=== PATIENT | female | born 1980 | race Caucasian/White ===

== ENCOUNTER 2016-12-28 01:28 | Emergency (ER) | payer MEDICAID ==
[~2016-12-28] VITALS: Ht 167.6 cm; Wt 72.1 kg
[2016-12-28 01:30] VITALS: BP 145/89
[2016-12-28] MEDS ORDERED: HYDROmorphone 1 MG/ML, 1ML ONE (01:56)
[2016-12-28] MEDS ORDERED: DIAZEPAM 5 MG TABLET ONE (01:56)
[2016-12-28] MEDS ORDERED: KETOROLAC 30 MG/1 ML ONE (01:56)
[2016-12-28] MEDS ORDERED: DIAZEPAM 5 MG TABLET PO ONE (02:00)
[2016-12-28] MEDS ORDERED: KETOROLAC 30 MG/1 ML IM ONE (02:00)
[2016-12-28] MEDS ORDERED: HYDROmorphone 1 MG/ML, 1ML IM ONE (02:00)
[2016-12-28 02:20] LABS: HCG UR LOT HCG7030192
[2016-12-28 02:29] LABS: HCG UR OBC PASS
[2016-12-28 03:17] LABS: PATH.CAST-FLAG NOT PRESENT; SPERM-FLAG NOT PRESENT; SRC-FLAG NOT PRESENT; XTAL-FLAG NOT PRESENT; YLC-FLAG NOT PRESENT
== END 2016-12-28 03:34 | disposition home or self-care (01) ==
LOC: ED 03:24
DX: S39.012A Strain of muscle, fascia and tendon of lower back, initial encounter (principal); F17.200 Nicotine dependence, unspecified, uncomplicated; Z90.49 Acquired absence of other specified parts of digestive tract; W01.0XXA Fall on same level from slipping, tripping and stumbling without subsequent striking against object, initial encounter; Y93.01 Activity, walking, marching and hiking; Y92.89 Other specified places as the place of occurrence of the external cause; Y99.8 Other external cause status
CPT/HCPCS: 72110; 81001; 81025; 87086; 96372; 99285; J1170; J1885

== ENCOUNTER 2018-01-25 22:02 | Emergency (ER) | payer MEDICAID ==
[~2018-01-25] VITALS: Ht 167.6 cm; Wt 73.5 kg
[2018-01-25 23:14] VITALS: BP 115/62
[2018-01-25 23:27] LABS: MICROSCOPIC AUTO
[2018-01-25 23:27] LABS: CLUE CELLS NONE SEEN (NONE SEEN)
[2018-01-25 23:28] LABS: WET PREP WBCS MODERATE (FEW)
[2018-01-25 23:30] LABS: CULTURE INDICATED? YES
[2018-01-25] MEDS ORDERED: CEFTRIAXONE 1,000 MG IM ONE (23:30)
[2018-01-25] MEDS ORDERED: AZITHROMYCIN 500 MG TABLET PO ONE (23:30)
[2018-01-25 23:31] LABS: HCG UR SG 1.027 (1.003-1.030)
[2018-01-25] MEDS ORDERED: AZITHROMYCIN 250 MG TABLET ONE (23:33)
[2018-01-25] MEDS ORDERED: CEFTRIAXONE 1,000 MG ONE (23:34)
== END 2018-01-26 | disposition home or self-care (01) ==
LOC: ED 22:55
DX: A59.09 Other urogenital trichomoniasis (principal); F17.210 Nicotine dependence, cigarettes, uncomplicated
CPT/HCPCS: 81001; 81025; 87086; 87210; 87491; 87591; 87808; 96372; 99284; J0696

== ENCOUNTER 2018-05-04 00:21 | Emergency (ER) | payer MEDICAID ==
[~2018-05-04] VITALS: Ht 167.6 cm; Wt 70.0 kg
[2018-05-04 00:24] VITALS: BP 122/83
[2018-05-04] MEDS ORDERED: LIDOCAINE-MPF 1%, 5ML INFIL ONE (01:30)
[2018-05-04] MEDS ORDERED: HYDROcodone/APAP 5/325 TABLET PO ONE (01:30)
[2018-05-04] MEDS ORDERED: LIDOCAINE-MPF 1%, 5ML ONE (01:44)
[2018-05-04] MEDS ORDERED: BACITRACIN ZINC OINT 500U/GM, 0.9 GM ONE (02:03)
== END 2018-05-04 02:21 | disposition home or self-care (01) ==
LOC: ED 01:41
DX: S61.311A Laceration without foreign body of left index finger with damage to nail, initial encounter (principal); F17.210 Nicotine dependence, cigarettes, uncomplicated; W26.0XXA Contact with knife, initial encounter; Y93.89 Activity, other specified; Y92.009 Unspecified place in unspecified non-institutional (private) residence as the place of occurrence of the external cause; Y99.8 Other external cause status
CPT/HCPCS: 12001; 99283

== ENCOUNTER 2018-06-04 22:08 | Emergency (ER) | payer MEDICAID ==
[~2018-06-04] VITALS: Ht 170.2 cm; Wt 70.7 kg
[2018-06-04 22:16] VITALS: BP 111/74
--- NOTE | 2018-06-04 22:21 | NUR ---
Pt ambulated to room with EDT.
[2018-06-04 23:16] LABS: WET PREP WBCS FEW (FEW)
[2018-06-04 23:18] LABS: CLUE CELLS NONE SEEN (NONE SEEN)
[2018-06-04] MEDS ORDERED: CEFTRIAXONE 250 MG IM ONE (23:30)
[2018-06-04] MEDS ORDERED: AZITHROMYCIN 250 MG TABLET PO ONE (23:30)
[2018-06-04] MEDS ORDERED: AZITHROMYCIN 500 MG TABLET ONE (23:46)
[2018-06-04] MEDS ORDERED: LIDOCAINE-MPF 1%, 2ML ONE (23:46)
[2018-06-04] MEDS ORDERED: CEFTRIAXONE 250 MG ONE (23:46)
[2018-06-05 00:17] LABS: HCG UR SG 1.027 (1.003-1.030); MICROSCOPIC AUTO
[2018-06-05 00:18] LABS: CULTURE INDICATED? YES
== END 2018-06-05 00:38 | disposition home or self-care (01) ==
LOC: ED 22:42
DX: N76.0 Acute vaginitis (principal); F17.200 Nicotine dependence, unspecified, uncomplicated; Z72.9 Problem related to lifestyle, unspecified; F17.210 Nicotine dependence, cigarettes, uncomplicated
CPT/HCPCS: 81001; 81025; 87086; 87210; 87491; 87591; 87808; 99283

== ENCOUNTER 2019-07-28 20:12 | Emergency (ER) | payer MEDICAID ==
[~2019-07-28] VITALS: Ht 170.2 cm; Wt 73.6 kg
[2019-07-28 20:21] VITALS: BP 116/73
--- NOTE | 2019-07-28 20:35 | NUR ---
THIS IS A 39Y F THAT COMES IN TONIGHT AFTER TWISTING HER ANKLE AND FALLING ON THE STAIRS ABOUT 6HRS AGO. PT PRESENTS WITH A SWOLLEN TENDER R ANKLE AND IS UNABLE TO AMBULATE WITHOUT ASSIST DUE TO PAIN. PT ABLE TO SPEAK IN FULL SENTENCES AND STS SHE DOES NOT WANT ANY PAIN MEDICATION
[2019-07-28] MEDS ORDERED: ACETAMINOPHEN 325 MG TABLET ONE (20:46)
--- NOTE | 2019-07-28 20:48 | NUR ---
PT PROVIDED ICE PACK AND MEDICATED PER ALBERTO ESPINO
[2019-07-28] MEDS ORDERED: ACETAMINOPHEN 325 MG TABLET PO ONE (21:00)
== END 2019-07-28 22:12 | disposition home or self-care (01) ==
LOC: ED 20:30
DX: S93.401A Sprain of unspecified ligament of right ankle, initial encounter (principal); F17.210 Nicotine dependence, cigarettes, uncomplicated; X58.XXXA Exposure to other specified factors, initial encounter; Y93.89 Activity, other specified; Y92.098 Other place in other non-institutional residence as the place of occurrence of the external cause; Y99.8 Other external cause status
CPT/HCPCS: 99284

== ENCOUNTER 2019-09-05 04:49 | Emergency (ER) | payer MEDICAID ==
[~2019-09-05] VITALS: Ht 170.2 cm; Wt 71.6 kg
[2019-09-05 04:52] VITALS: BP 126/90
[2019-09-05] MEDS ORDERED: KETOROLAC 30 MG/1 ML ONE (05:12)
--- NOTE | 2019-09-05 05:14 | NUR ---
PT RESTING ON GURNEY, MONITORS IN PLACE, SIDERAILS UP X2, CALL LIGHT WITHIN REACH. PT REFUSED PAIN MEDICATION, DENIES FURTHE RNEEDS AT THSI TIME
[2019-09-05] MEDS ORDERED: KETOROLAC 30 MG/1 ML IM ONE (05:30)
--- NOTE | 2019-09-05 05:50 | NUR ---
medical education specialist at pt's bedside to apply nathaly wrap and crutch instructions
== END 2019-09-05 05:59 | disposition home or self-care (01) ==
LOC: ED 05:48
DX: G89.29 Other chronic pain (principal); M25.571 Pain in right ankle and joints of right foot; F17.200 Nicotine dependence, unspecified, uncomplicated; X50.1XXA Overexertion from prolonged static or awkward postures, initial encounter; Y93.89 Activity, other specified; Y92.89 Other specified places as the place of occurrence of the external cause; Y99.8 Other external cause status
CPT/HCPCS: 99283

== ENCOUNTER 2020-05-02 18:04 | Emergency (ER) | payer MEDICAID ==
--- NOTE | 2020-05-02 18:47 | NUR ---
LATE ENTRY FOR 1809. PT PUSHED BUTTON AT DOOR AND DEMANDED TO BE LET BACK. PT WOULD NOT GIVE ANY INFORMATION AND PUSHED THE DOOR OPEN WHEN ANOTHER PERSON WAS ON THEIR WAY TO THE LOBBY FROM THE ED. PT STORMED TO DESK AND DEMANDED TO BE SEEN BECAUSE SHE RECEIVED A LETTER FROM THE DEPARTMENT OF HEALTH. THIS TECH INFORMED HER THAT SHE WOULD HAVE TO WAIT TO BE SEEN AND THAT SHE WOULD HAVE TO BE TRIAGED FIRST. SHE STATED SHE DID NOT WANT TO WAIT AND WALKED OUT OF THE ED TOWARDS THE LOBBY.
== END 2020-05-02 19:35 ==
LOC: ED 18:34
DX: Z53.21 Procedure and treatment not carried out due to patient leaving prior to being seen by health care provider (principal)

== ENCOUNTER 2020-06-04 05:56 | Emergency (ER) | payer MEDICAID ==
[~2020-06-04] VITALS: Ht 170.2 cm; Wt 76.1 kg
[2020-06-04] MEDS ORDERED: CEFTRIAXONE 1,000 MG ONE (06:28)
[2020-06-04] MEDS ORDERED: AZITHROMYCIN 500 MG TABLET ONE (06:28)
[2020-06-04] MEDS ORDERED: CEFTRIAXONE 250 MG IM ONE (06:30)
[2020-06-04] MEDS ORDERED: AZITHROMYCIN 500 MG TABLET PO ONE (06:30)
--- NOTE | 2020-06-04 06:30 | NUR ---
DR. OVALLE AND THIS RN TO BEDSIDE. PELVIX EXAM PERFORMED BY MD. NO COTTON BALL VISUALIZED. NO FOUL ODOR NOTED. CALL STACK IN REACH. SAFETY MAINTAINED.
[2020-06-04 06:45] LABS: WET PREP WBCS FEW (FEW)
[2020-06-04 06:47] LABS: CLUE CELLS NONE SEEN (NONE SEEN)
--- NOTE | 2020-06-04 06:49 | NUR ---
REPORT GIVEN TO GWEN MALAVE
[2020-06-04 07:02] VITALS: BP 132/72
== END 2020-06-04 07:04 | disposition home or self-care (01) ==
LOC: ED 06:37
DX: R10.2 Pelvic and perineal pain (principal); R11.0 Nausea; F17.200 Nicotine dependence, unspecified, uncomplicated; Z98.51 Tubal ligation status
CPT/HCPCS: 87210; 87491; 87591; 87808; 96372; 99284; J0696

== ENCOUNTER 2020-10-20 18:28 | Emergency (ER) | payer MEDICAID ==
[~2020-10-20] VITALS: Ht 170.2 cm; Wt 74.0 kg
[2020-10-20 18:31] VITALS: BP 150/87
--- NOTE | 2020-10-20 18:52 | NUR ---
urine collected and sent. pt back to lobby
[2020-10-20 19:27] LABS: MICROSCOPIC AUTO
--- NOTE | 2020-10-20 23:06 | NUR ---
ATTEMPTED TO RE-VITAL. PT NIL X 1
--- NOTE | 2020-10-20 23:40 | NUR ---
NIL X 2
--- NOTE | 2020-10-21 00:04 | NUR ---
OCEAN BIOLOGIST: NIL X 3 WHEN CALLED FOR ROOM.
== END 2020-10-21 00:07 | disposition left against medical advice (07) ==
LOC: ED 18:31
DX: R30.0 Dysuria (principal); R35.0 Frequency of micturition; N89.8 Other specified noninflammatory disorders of vagina
CPT/HCPCS: 81001; 87086; 87147; 87491; 87591; 99283; 99284